=== PATIENT | male | born 1975 | race Caucasian/White ===

== ENCOUNTER 2019-11-02 20:38 | Emergency (ER) | payer BC, OTHER ==
--- NOTE | 2019-11-02 22:13 | ER Document Report ---
ED Medical Screen (RME) - General Chief Complaint: Chest Pain Stated Complaint: CHEST PAIN Time Seen by Provider: 11/02/19 22:10 Primary Care Provider: KATHLEEN KIDD MD [Primary Care Provider] - Follow up as needed Notes: Patient is a 44-year-old male who presents emergency department with a chief complaint of back pain. Patient reports about 1 week ago he developed a deep aching sensation between his shoulder blades that at times does radiate into his chest. Patient reports this occurs at any time and is not exacerbated with any type of movement or activity. Patient reports tonight the ache did come on with a sudden onset and have been the most severe. Patient reports at that time the deep ache was so painful that he experienced nausea without vomiting. Patient reports he when he does experience a deep ache it radiates into his bilateral neck and left arm. Patient denies shortness of breath. TRAVEL OUTSIDE OF THE [place] IN LAST 30 DAYS: No Past Medical History - Social History Chew tobacco use (# tins/day): No Frequency of alcohol use: None Drug Abuse: None Physical Exam - Vital signs Vitals: Temp Pulse Resp BP Pulse Ox 98.1 F 91 22 H 147/99 H 98 11/02/19 20:51 11/02/19 20:51 11/02/19 20:51 11/02/19 20:51 11/02/19 20:51 - Cardiovascular Rhythm: Regular Heart sounds: Normal auscultation, S1 appreciated, S2 appreciated Course - Re-evaluation Re-evalutation: 11/02/19 22:12 Patient currently denies chest pain or an ache in his upper back. Patient nontoxic-appearing. Will initiate basic labs to include a troponin and a chest x-ray. I have greeted and performed a rapid initial assessment of this patient. A comprehensive ED assessment and evaluation of the patient, analysis of test results and completion of the medical decision making process will be conducted by additional ED providers. - Vital Signs Vital signs: Temp Pulse Resp BP Pulse Ox 98.1 F 91 22 H 147/99 H 98 11/02/19 20:51 11/02/19 20:51 11/02/19 20:51 11/02/19 20:51 11/02/19 20:51 Doctor's Discharge - Discharge Referrals: KATHLEEN KIDD MD [Primary Care Provider] - Follow up as needed
[2019-11-02 22:46] LABS: HEMATOCRIT 40.6 % (37.9-51.0); MEAN CORPUSCULAR HEMOGLOBIN 27.5 pg (27.0-33.4); MEAN CORPUSCULAR HGB CONC 34.5 g/dL (32.0-36.0); MEAN CORPUSCULAR VOLUME 80 fl (80-97); PLATELET COUNT 217 10^3/uL (150-450); RED CELL DISTRIBUTION WIDTH 13.1 % (11.5-14.0); WHITE BLOOD COUNT 7.9 10^3/uL (4.0-10.5)
--- NOTE | 2019-11-02 22:55 | EKG REPORT ---
SEVERITY:- ABNORMAL ECG - SINUS RHYTHM PROBABLE LEFT ATRIAL ABNORMALITY CONSIDER ANTEROSEPTAL INFARCT : Confirmed by: Brenda Gallo MD 02-Nov-2019 22:54:25
[2019-11-02 22:56] LABS: ALKALINE PHOSPHATASE 139 U/L (38-126); ANION GAP 15 (5-19); ASPARTATE AMINO TRANSFERASE 19 U/L (17-59); BILIRUBIN,DIRECT 0.3 mg/dL (0.0-0.4); BILIRUBIN,TOTAL 0.5 mg/dL (0.2-1.3); BLOOD UREA NITROGEN 17 mg/dL (7-20); CALCIUM 8.9 mg/dL (8.4-10.2); CARBON DIOXIDE 19 mmol/L (22-30); CHLORIDE 95 mmol/L (98-107); POTASSIUM 4.6 mmol/L (3.6-5.0); TOTAL PROTEIN 6.8 g/dL (6.3-8.2)
[2019-11-02 23:11] LABS: GLUCOSE 643 mg/dL (75-110)
--- NOTE | 2019-11-02 23:15 | RADIOLOGY REPORT (SQ) ---
EXAM DESCRIPTION: XR CHEST 2 VIEWS COMPLETED DATE/TME: 11/02/2019 22:11 CLINICAL HISTORY: 44 years Male chest pressure COMPARISON: None. FINDINGS: The cardiomediastinal silhouette appears unremarkable. No consolidating infiltrates or pleural effusions. No pneumothorax. IMPRESSION: No acute abnormality is identified.
[2019-11-02] MEDS ORDERED: NORMAL SALINE 1000 ML 1,000 ML IV ONE (23:18)
[2019-11-02 23:23] LABS: ABSOLUTE LYMPHOCYTES# (MANUAL) 1.7 10^3/uL (0.5-4.7); ABSOLUTE MONOCYTES # (MANUAL) 0.4 10^3/uL (0.1-1.4); BASOPHILS % (MANUAL) 2 % (0-2); EOSINOPHILS % (MANUAL) 3 % (0-6); LYMPHOCYTES % (MANUAL) 21 % (13-45); MONOCYTES % (MANUAL) 5 % (3-13); SEGMENTED NEUTROPHILS % (MAN) 69 % (42-78); TOTAL CELLS COUNTED 100
[2019-11-02 23:24] LABS: HYPOCHROMASIA SLIGHT; POIKILOCYTOSIS SLIGHT; TOXIC GRANULATION 1+; TOXIC VACUOLATION PRESENT
[2019-11-02 23:25] LABS: OVALOCYTES SLIGHT; PLATELET COMMENT ADEQUATE; TEAR DROP CELLS SLIGHT
[2019-11-02 23:53] LABS: VENOUS BLOOD BASE EXCESS -2.1 mmol/L; VENOUS BLOOD HCO3 22.9 mmol/L (20-32); VENOUS BLOOD PCO2 40.3 mmHg (35-63); VENOUS BLOOD PH 7.37 (7.30-7.42)
--- NOTE | 2019-11-03 02:19 | ER Document Report ---
ED Cardiac - General Chief Complaint: Chest Pain Stated Complaint: CHEST PAIN Time Seen by Provider: 11/02/19 22:10 Primary Care Provider: KATHLEEN KIDD MD [Primary Care Provider] - Follow up as needed Mode of Arrival: Ambulatory Information source: Patient TRAVEL OUTSIDE OF THE [place] IN LAST 30 DAYS: No - HPI Patient complains to provider of: Other - Chest pressure radiating to the back Was the onset of pain: Unknown - Episodic associated with rest or exertion. Is the pain a: New problem Chest pain location: Back Quality of pain: Pressure Chest pain radiation location: Left jaw, Left arm, Right jaw Severity now: None Severity at worst: Moderate Pain level currently: 0 Chest pain precipitating factors: Yes Cardiac risk factors: Diabetes, + Family history, Dyslipidemia Positive cardiac history: No Associated symptoms: Other - Nausea no vomiting. Relieved by: Rest Notes: Patient's risk factors for cardiac speed factors are smoking history, just quit smoking 1 week ago when symptoms began past history of elevated LDL and low HDL. Denies known history of diabetes but on presentation tonight blood sugars greater than 600. Positive family history of cardiac disease and history of coronary artery disease and pacemaker issues. No hypertension diagnosed in the past - Related Data Allergies/Adverse Reactions: No Known Allergies Allergy (Verified 11/02/19 23:59) Past Medical History - Social History Smoking Status: Former Smoker Chew tobacco use (# tins/day): No Smoking Education Provided: Yes Frequency of alcohol use: States he had 2 beers last evening. Drug Abuse: None Lives with: Family Family History: CAD Patient has suicidal ideation: No Patient has homicidal ideation: No - Past Medical History Cardiac Medical History: Reports: Other - See HPI Physical Exam - Vital signs Vitals: Temp Pulse Resp BP Pulse Ox 98.1 F 91 22 H 147/99 H 98 11/02/19 20:51 11/02/19 20:51 11/02/19 20:51 11/02/19 20:51 11/02/19 20:51 Interpretation: Normal - General General appearance: Appears well, Alert - HEENT Head: Normocephalic, Atraumatic Eyes: Normal Pupils: PERRL - Respiratory Respiratory status: No respiratory distress Chest status: Nontender Breath sounds: Normal Chest palpation: Normal - Cardiovascular Rhythm: Regular Heart sounds: Normal auscultation Murmur: No - Abdominal Inspection: Normal Distension: No distension Bowel sounds: Normal Tenderness: Nontender Organomegaly: No organomegaly - Back Back: Normal, Nontender - Extremities General upper extremity: Normal inspection, Nontender, Normal color, Normal ROM, Normal temperature General lower extremity: Normal inspection, Nontender, Normal color, Normal ROM, Normal temperature, Normal weight bearing. No: Golden's sign - Neurological Neuro grossly intact: Yes Cognition: Normal Orientation: AAOx4 Radha Coma Scale Eye Opening: Spontaneous Radha Coma Scale Verbal: Oriented Richton Coma Scale Motor: Obeys Commands Richton Coma Scale Total: 15 Speech: Normal Motor strength normal: LUE, RUE, LLE, RLE Sensory: Normal - Psychological Associated symptoms: Normal affect, Normal mood - Skin Skin Temperature: Warm Skin Moisture: Dry Skin Color: Normal Course - Re-evaluation Re-evalutation: 11/03/19 03:51 Patient has been pain-free the entire visit in this emergency department. 2 EKGs does not show any acute ST changes. Patient has had a marginal increase in his troponin to 0.117. Hemodynamically stable. 11/03/19 03:[address] Salvador Saleh hospitalist at [facility] in [facility] [place] patient is currently placed on a wait list for cardiac telemetry. - Vital Signs Vital signs: Temp Pulse Resp BP Pulse Ox 98.1 F 91 18 128/94 H 98 11/02/19 20:51 11/02/19 20:51 11/03/19 04:01 11/03/19 04:01 11/03/19 04:01 - Laboratory Result Diagrams: 11/02/19 22:20 11/02/19 22:20 Laboratory results interpreted by me: 11/02/19 11/03/19 11/03/19 22:20 01:29 04:10 Sodium 128.8 L Chloride 95 L Carbon Dioxide 19 L Glucose 643 H* POC Glucose 393 H 319 H Alkaline Phosphatase 139 H - Diagnostic Test Radiology reviewed: Image reviewed, Reports reviewed Critical Care Note - Critical Care Note Total time excluding time spent on procedures (mins): 44 Discharge - Discharge Clinical Impression: Coronary syndrome, acute Condition: Critical Disposition: [facility] Referrals: KATHLEEN KIDD MD [Primary Care Provider] - Follow up as needed
[2019-11-03] MEDS ORDERED: NITROGLYCERIN 2% OINTMENT 1 GM PACKET TP ONE (02:41)
[2019-11-03] MEDS ORDERED: ASPIRIN 81 MG TABLET, CHEWABLE PO ONE (02:41)
[2019-11-03] MEDS ORDERED: NORMAL SALINE 1000 ML 1,000 ML IV ONE (02:42)
[2019-11-03] MEDS ORDERED: ENOXAPARIN SODIUM INJ 30 MG/0.3 ML DISP.SYRIN SUBCUT ONE (04:01)
[2019-11-03 04:40] LABS: ANION GAP 12 (5-19); BLOOD UREA NITROGEN 12 mg/dL (7-20); CALCIUM 8.5 mg/dL (8.4-10.2); CARBON DIOXIDE 19 mmol/L (22-30); CHLORIDE 104 mmol/L (98-107); GLUCOSE 309 mg/dL (75-110); POTASSIUM 3.8 mmol/L (3.6-5.0)
[2019-11-03 09:32] VITALS: BP 124/92
--- NOTE | 2019-11-03 19:35 | EKG REPORT ---
SEVERITY:- NORMAL ECG - SINUS RHYTHM : Confirmed by: Brenda Gallo MD 03-Nov-2019 19:33:41
--- NOTE | 2019-11-03 19:35 | EKG REPORT ---
SEVERITY:- NORMAL ECG - SINUS RHYTHM : Confirmed by: Brenda Gallo MD 03-Nov-2019 19:33:37
== END 2019-11-03 09:45 | disposition short-term general hospital (02) ==
LOC: ER 20:38
DX: I24.9 Acute ischemic heart disease, unspecified (principal); R07.9 Chest pain, unspecified; M54.9 Dorsalgia, unspecified; R68.84 Jaw pain; M79.602 Pain in left arm; Z87.891 Personal history of nicotine dependence
CPT/HCPCS: 93005 ×2; 99291; 96372; 96360; 96361; 36415; 82962; 85025; 80048; 80053; 84484; 82803; 71046; 93010 ×2; J1650; J7030 ×2